=== PATIENT | female | born 1965 | race Caucasian/White ===

== ENCOUNTER 2017-10-02 23:53 | Emergency (ER) | payer SELFPAY | END 2017-10-03 06:30 | disposition home or self-care (01) | LOC: M ED 23:53 | DX: F10.120 Alcohol abuse with intoxication, uncomplicated (principal); F32.9 Major depressive disorder, single episode, unspecified; Z98.84 Bariatric surgery status; Z79.899 Other long term (current) drug therapy | CPT/HCPCS: 99284 ==